=== PATIENT | male | born 1960 | race Caucasian/White ===

== ENCOUNTER 2020-05-17 09:32 | Day surgery (SDC) | payer BC ==
[2020-05-17] VITALS (11 sets, daily range): BP systolic 98–124; BP diastolic 60–75; PULSE 60–90; TEMP 97.5–98.2
[~2020-05-17] VITALS: Ht 170.2 cm; Wt 99.0 kg
[2020-05-17 10:13] LABS: HEMATOCRIT 39.5 % (42.0-52.0); HEMOGLOBIN 13.7 g/dl (13.5-18.0); MEAN CELL VOLUME 87 fl (80.0-100.0); MEAN CORPUSCULAR HEMOGLOBIN 30 pg (27.0-31.0); MEAN CORPUSCULAR HGB CONC 35 g/dl (33.0-37.0); MEAN PLATELET VOLUME 9.4 fl (7.4-10.4); PLATELET COUNT 225 K/mm3 (130-400); RED BLOOD COUNT 4.54 M/mm3 (4.20-5.60); REDCELL DISTRIBUTION WIDTH-CV 12.7 % (11.5-14.5)
[2020-05-17 10:23] LABS: CALCIUM 9.7 mg/dL (8.4-10.2); CREATININE, serum 0.87 (0.66-1.25); POTASSIUM 4.4 mmol/L (3.4-5.0)
[2020-05-17] MEDS ORDERED: LIPITOR 40MG TA40 MG PO (10:27)
[2020-05-17] MEDS ORDERED: GLUCOPHAGE500 MG/TAB PO (10:28)
[2020-05-17] MEDS ORDERED: ZESTRIL2.5 MG PO (10:28)
[2020-05-17] MEDS ORDERED: ASPIRIN 81M81 MG/TA2 PO (10:29)
[2020-05-17] MEDS ORDERED: COREG 3.123.125 MG/T PO (10:29)
[2020-05-17] MEDS ORDERED: SYNTHROID0.075 MG/T PO (10:30)
[2020-05-17 10:31] LABS: PROTHROMBIN TIME 11.6 SECONDS (9.7-12.8)
--- NOTE | 2020-05-17 15:15 | NUR ---
Pt to procedure.
--- NOTE | 2020-05-17 15:46 | NUR ---
SEE MERGE DOCUMENTATION FOR MEDICATION ADMINISTRATION TIMES AND INTRA/POST PROCEDURE SEDATION ASSESSMENTS.
--- NOTE | 2020-05-17 17:25 | NUR ---
Patient to room 316 by bed from helper animal laboratory. Patient A&Ox3. Denies pain, reports discomfort at incision site left upper chest. Incision site CDI, left arm in sling, ice applied. Post op VS monitored and VSS. IV CDI. Telemetry on chest. Nurse oriented patient to room and call light. No further needs expressed from patient. Call light within reach
--- NOTE | 2020-05-17 17:43 | NUR ---
Patient sitting up in bed. Lungs CTA, HRR, telemetry on chest. CML WNL. Audible bowel sounds. Patient hungry and requesting food. Will check WBG. Call light within reach.
--- NOTE | 2020-05-17 18:25 | NUR ---
Patient sitting up in bed watching TV. VSS. IV CDI, fluids infusing by gravity. Left arm sling. Incision site left upper chest CDI, ice applied. Post op VS monitored. Patient waiting on dinner. No further needs expressed from patient. Call light within reach
--- NOTE | 2020-05-17 20:20 | NUR ---
Resting in bed. Assessment complete. Lungs clear. Heart sounds normal. Bowels active x4. Pulses present throughout. Left lower extremity edema +1 present. INT left AC flushed without complications. Incision to left chest/shoulder CDI with a gauze dressing. Ice in place. Report 1/10 pain at site. Denies other needs at this time. Call light in reach.
--- NOTE | 2020-05-18 00:07 | NUR ---
Resting in bed. Denies pain. Denies needs. Dressing CDI. Call light in reach.
[2020-05-18 03:19] VITALS: BP 140/79; PULSE 76; TEMP 97.8
--- NOTE | 2020-05-18 04:00 | NUR ---
Resting in bed. Denies needs. Denies pain. Call light in reach.
--- NOTE | 2020-05-18 06:16 | NUR ---
Patient had uneventful night. Required x1 dose of tylenol for pain control. ICD data sent this AM. Denies needs. Call light in reach.
[2020-05-18 06:33] LABS: BASO % 0.4 % (0.0-2.0); EOS # 0.2 (0.0-0.7); EOS % 2.6 % (0-4.0); GRAN # 4.2 (1.4-6.5); GRAN % 59.1 % (42.2-75.2); HEMOGLOBIN 12.7 g/dl (13.5-18.0); LYMPH % 28.3 % (20.0-51.0); MEAN CELL VOLUME 89 fl (80.0-100.0); MEAN CORPUSCULAR HEMOGLOBIN 31 pg (27.0-31.0); MEAN CORPUSCULAR HGB CONC 35 g/dl (33.0-37.0); MEAN PLATELET VOLUME 9.7 fl (7.4-10.4); MONO # 0.6 (0.1-0.6); MONO % 8.7 % (1.7-9.3); PLATELET COUNT 195 K/mm3 (130-400); REDCELL DISTRIBUTION WIDTH-CV 12.9 % (11.5-14.5)
[2020-05-18 06:44] LABS: HEMATOCRIT 36.3 % (42.0-52.0)
[2020-05-18 06:50] LABS: CALCIUM 9.2 mg/dL (8.4-10.2); CREATININE, serum 0.91 (0.66-1.25); MAGNESIUM 1.8 mg/dL (1.6-2.3); POTASSIUM 4.2 mmol/L (3.4-5.0)
--- NOTE | 2020-05-18 07:10 | NUR ---
Report with TOBY Gamez. Pt sitting up in bed, denies needs at this time. Dressing over left chest incision CDI. Call light in reach.
--- NOTE | 2020-05-18 07:14 | NUR ---
Report given to TOBY Box
[2020-05-18 07:34] VITALS: BP 123/66; PULSE 66; TEMP 97.6
--- NOTE | 2020-05-18 08:40 | NUR ---
Assessment complete. Pt sitting up in bed, A&O x 4. Left chest incision site with gauze dressing CDI. Pt denies pain at this time. Saline lock IV to left forearm without s/s of complications. No further needs reported. Call light in reach.
[2020-05-18] MEDS ORDERED: CEPHALEXIN500 M1 PO (09:57)
--- NOTE | 2020-05-18 13:32 | NUR ---
BRYANT met with the patient to discuss discharge plan. The patient lives in [place] with his [id number] son, Claudia. He states Ana's mother is with him while he is here. He reports independence with ADLs and does not have any DME. The patient's primary care provider is NIRALI Kulkarni and he receives his medications at [facility]. He reports no difficulties obtaining his meds. The patient does not have advanced directives in EMR, but he states that he believes he has them completed and that his PCP's office should have a copy of them. He states that he would have designated his [id number], Torrey De La Cruz (ph#[phone]), as his DPOA-HC. BRYANT contacted medical records at [facility] and requested a copy. The outpatient receptionist reports that they do have copy of his DPOA-HC and will fax it to the medical unit. The patient plans to return back home with his son today, 05/18. No additional needs at this time.
--- NOTE | 2020-05-18 14:10 | NUR ---
Discharge instructions reviewed with pt regarding wound care, activity restrictions, new medication, and follow-up appointment. 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 Pt awaiting ride from son.
--- NOTE | 2020-05-18 15:45 | NUR ---
Pt discharged home, escorted out of facility via WC accompanied by RN.
== END 2020-05-18 15:45 | disposition home or self-care (01) ==
LOC: COL.CAR 09:32 → MEDICAL 17:41 → COL.CAR 05-18 15:45
PROVIDERS: Internal Medicine Cardiovascular Disease
DX: I42.0 Dilated cardiomyopathy (principal); I50.22 Chronic systolic (congestive) heart failure; I44.7 Left bundle-branch block, unspecified; G47.33 Obstructive sleep apnea (adult) (pediatric); I08.3 Combined rheumatic disorders of mitral, aortic and tricuspid valves; E78.5 Hyperlipidemia, unspecified; Z79.82 Long term (current) use of aspirin; Z79.4 Long term (current) use of insulin; Z86.73 Personal history of transient ischemic attack (TIA), and cerebral infarction without residual deficits
CPT/HCPCS: OP; J0690; J2250; J3010; J7030; Q9967